=== PATIENT | female | born 1975 | race Caucasian/White ===

== ENCOUNTER 2020-04-17 22:22 | Emergency (ER) | payer OTHER ==
[2020-04-17 22:30] VITALS: RESP 18
[2020-04-17] MEDS ORDERED: FAMOTIDINE 20 MG/2 ML VIAL IV STA (22:37)
[2020-04-17] MEDS ORDERED: methylPREDNISolone SOD SUCCI 125 MG/2 ML VIAL IV STA (22:37)
--- NOTE | 2020-04-17 22:41 | ED ---
Allergic Reaction HPI - General Chief complaint: Allergic Reaction Stated complaint: allergic reaction Time Seen by Provider: 04/17/20 22:24 Source: patient, EMS, RN notes reviewed, old records reviewed Mode of arrival: EMS Limitations: no limitations - History of Present Illness Initial Comments: This patient's a 44-year-old female presents emergency department today from [facility]. She presents today with complaints of facial swelling and tongue swelling for the past 2 days. Patient states the following was difficult for her to swallow somewhat today. She thinks this could be related to eating an avocado. She is never happened before. Patient states that she was given Benadryl by EMS. Patient is 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 Patient denies any other new medications. Patient states that she's had some chills denies fevers. She states that it felt like her eyes were swollen and puffy this morning. She denies any pain with extra ocular movements are dental pain. - Related Data Previous Rx's Medication Instructions Recorded Cetirizine HCl 10 mg PO DAILY #10 tablet 04/17/20 diphenhydrAMINE [Benadryl] 25 mg PO QID PRN #20 capsule 04/17/20 predniSONE [Deltasone] 0 mg PO DIRECTED #12 tab 04/17/20 Allergies Allergy/AdvReac Type Severity Reaction Status Date / Time avocado Allergy Swelling Verified 04/17/20 22:34 latex Allergy Rash/Hives Verified 04/17/20 22:31 Penicillins Allergy Rash/Hives Verified 04/17/20 22:31 Review of Systems ROS Statement: Those systems with pertinent positive or pertinent negative responses have been documented in the HPI. ROS Other: All systems not noted in ROS Statement are negative. Past Medical History Past Medical History: Cancer, Seizure Disorder, Thyroid Disorder Additional Past Medical History / Comment(s): Multiple Sclerosis History of Any Multi-Drug Resistant Organisms: None Reported Additional Past Surgical History / Comment(s): Thyroidectomy Past Psychological History: Anxiety Smoking Status: Current every day smoker Past Alcohol Use History: Abuse General Exam - General Exam Comments Initial Comments: 44 year old female, no distress. Limitations: no limitations General appearance: alert, in no apparent distress Head exam: Present: atraumatic, normocephalic, normal inspection Eye exam: Present: normal appearance, PERRL, EOMI, periorbital swelling (Bilateral minimal periorbital swelling. No pain with extraocular eye movements.). Absent: scleral icterus, conjunctival injection ENT exam: Present: normal exam, normal oropharynx (Some minor tongue swelling. No difficulty swallowing secretions.), mucous membranes moist Neck exam: Present: normal inspection. Absent: tenderness, meningismus, lymphadenopathy Respiratory exam: Present: normal lung sounds bilaterally. Absent: respiratory distress, wheezes, rales, rhonchi, stridor Cardiovascular Exam: Present: regular rate, normal rhythm, normal heart sounds. Absent: systolic murmur, diastolic murmur, rubs, gallop, clicks GI/Abdominal exam: Present: soft, normal bowel sounds. Absent: distended, tenderness, guarding, rebound, rigid Extremities exam: Present: normal inspection, full ROM, normal capillary refill. Absent: tenderness, pedal edema, joint swelling, calf tenderness Back exam: Present: normal inspection Neurological exam: Present: alert, oriented X3, CN II-XII intact Psychiatric exam: Present: normal affect, normal mood Skin exam: Present: warm, dry, intact, normal color. Absent: rash Course Vital Signs 04/17/20 04/17/20 04/17/20 22:24 22:36 22:58 Temperature 99.7 F H Pulse Rate 76 81 Respiratory 18 18 Rate Blood Pressure 124/86 O2 Sat by Pulse 97 Oximetry Medical Decision Making - Medical Decision Making Patient is a 44-year-old female presents emergency department today from [facility] for complaints of ALLERGIC reaction to unknown substance. She reports this started a couple days ago when she noticed possibly after eating avocado she had some eye swelling and tongue swelling. She reports symptoms continue to persist. Patient's had no new medication changes. At this time she has had some minimal periorbital edema bilaterally. No pain with extraocular movements. She had minimal tongue swelling when she arrived. She is able to tolerate secretions. Patient was given IV Solu-Medrol and Pepcid and emergency Department R he received epi and Benadryl by EMS. Patient does report some improvement of her Sarah no difficulty in swallowing at this time. She denies any significant fevers or chills had a low-grade temperature 99.5. She does have some mild sinus tenderness. Discussed with treat for mild sinusitis as well and we'll put the Patient on steroid and an antihistamine medication. Discussed return parameters. Disposition Clinical Impression: Allergic reaction Disposition: HOME SELF-CARE Condition: Good Instructions (If sedation given, give patient instructions): General Allergic Reaction (ED) Additional Instructions: Patient advised to have close follow-up with primary care physician. Medication as prescribed. Return to the ED if any alarming signs or symptoms occur. Prescriptions: diphenhydrAMINE [Benadryl] 25 mg PO QID PRN #20 capsule PRN Reason: Itching Cetirizine HCl 10 mg PO DAILY #10 tablet predniSONE [Deltasone] 0 mg PO DIRECTED #12 tab Is patient prescribed a controlled substance at d/c from ED?: No Referrals: Narciso Torres DO [Primary Care Provider] - 1-2 days Time of Disposition: 23:40
[2020-04-18 00:17] VITALS: BP 118/85; PULSE 80; TEMP 97.7
== END 2020-04-18 00:16 | disposition home or self-care (01) ==
LOC: EC 22:22
DX: T78.40XA Allergy, unspecified, initial encounter (principal); H05.223 Edema of bilateral orbit; J32.9 Chronic sinusitis, unspecified; F17.200 Nicotine dependence, unspecified, uncomplicated; Z91.040 Latex allergy status; Z88.0 Allergy status to penicillin; Z91.018 Allergy to other foods; Z85.9 Personal history of malignant neoplasm, unspecified
CPT/HCPCS: 99284; 96374; 96375; J2930